=== PATIENT | female | born 1995 | race Caucasian/White ===

== ENCOUNTER 2017-06-16 11:16 | Emergency (ER) | payer SELFPAY ==
[~2017-06-16] VITALS: Ht 160 cm; Wt 100.0 kg
[2017-06-16 11:18] VITALS: BP 129/79; PULSE 85; RESP 22; TEMP 98.6; O2SAT 95
[2017-06-16] MEDS ORDERED: ZOFR4TAB PO (12:01)
--- NOTE | 2017-06-16 12:02 | PD ---
HPI . Vomiting Chief Complaint: Abdominal Pain Time Seen by Provider: 11:53 Travel History International Travel<30 days: No Contact w/Intl Traveler<30days: No Traveled to known affect area: No History of Present Illness HPI Patient presents with a chief complaint today of vomiting. She reports cold symptoms for week. She developed vomiting today. She states that she also has some upper abdominal pain which is resolved with vomiting. She has not been running a fever. She states that he is in [place] has given her no relief of her cold symptoms. No exacerbating factors. She states that her symptoms have been pretty much the same for the past week. [facility] Social History Tobacco Use: No Review of Systems Except as stated in HPI: all other systems reviewed are Neg General / Constitutional: No: Fever, Chills HENT: Positive: Congestion Respiratory: Positive: Cough Gastrointestinal: Positive: Nausea, Vomiting Physical Exam Narrative GENERAL: Awake and alert and in no distress. SKIN: warm/dry. HEAD: Normocephalic. Atraumatic. EYES: Pupils equal and round. No scleral icterus. No injection or drainage. ENT: No nasal bleeding or discharge. Mucous membranes pink and moist. NECK: Trachea midline. Full range of motion without pain.. CARDIOVASCULAR: Regular rate and rhythm. Heart sounds normal. RESPIRATORY: No accessory muscle use. Clear to auscultation. Breath sounds equal bilaterally. GASTROINTESTINAL: Abdomen soft. Nontender. Bowel sounds present. Nondistended. MUSCULOSKELETAL: No obvious deformities. NEUROLOGICAL: Awake and alert. No obvious cranial nerve deficits. Motor grossly within normal limits. Normal speech. PSYCHIATRIC: Appropriate mood and affect; insight and judgment normal. Data Data Last Documented VS Vital Signs Date Time Temp Pulse Resp B/P (MAP) Pulse Ox O2 Delivery O2 Flow Rate FiO2 06/16/17 11:18 98.6 85 22 129/79 (96) 95 MDM Medical Decision Making Medical Screen Exam Complete: Yes Emergency Medical Condition: Yes Differential Diagnosis Differential diagnosis includes but is not limited to influenza, upper respiratory infection, bronchitis, pneumonia Narrative Course This patient presents with a one-week history of cold. She vomited today. She has a benign exam. She will be discharged home. I will give her a prescription for Zofran. Diagnosis Primary Impression: Vomiting Qualified Codes: R11.2 - Nausea with vomiting, unspecified Additional Impression: Upper respiratory infection Qualified Codes: J06.9 - Acute upper respiratory infection, unspecified; B97.89 - Other viral agents as the cause of diseases classified elsewhere Patient Instructions: Acute Nausea and Vomiting (DC), General Instructions, Upper Respiratory Infection (DC) Additional Instructions: I recommend the use of a Neti Pot. You may use a nasal spray such as Afrin for up to 3 days as needed for nasal congestion. You may take an [id number] antihistamine such as Zyrtec, Joanne or Claritin as needed for runny secretions. You may take pseudoephedrine as needed for congestion. You will need to sign for this at the pharmacy. You may take plain Mucinex, 1200 mg twice a day as needed for thick secretions. You may take a cough syrup such as Delsym as needed for cough. Motrin as needed for fever and body aches. Throat lozenges/sprays as needed for sore throat. Warm salt water gargles for sore throat. Hot tea with lemon and honey also helps soothe a sore throat. Med/Other Pt SpecificInfo: Prescription(s) given Scripts Ondansetron (Zofran) 4 Mg Tab 4 MG PO Q12HR Y for NAUSEA OR VOMITING, #12 TAB 0 Refills Prov: Pam Merritt MD 06/16/17 Disposition: 01 DISCHARGE HOME Condition: Stable Pam Merritt MD Jun 16, 2017 12:02
== END 2017-06-16 12:33 | disposition home or self-care (01) ==
LOC: NED 11:16
DX: J06.9 Acute upper respiratory infection, unspecified (principal); R11.2 Nausea with vomiting, unspecified
CPT/HCPCS: 99283